=== PATIENT | male | born 2000 | race Two or more races ===

== ENCOUNTER 2018-01-21 14:01 | Outpatient (CLI) | payer MEDICAID ==
[~2018-01-21] VITALS: Ht 170.2 cm; Wt 50.8 kg
[2018-01-21 14:00] VITALS: BP 103/62
--- NOTE | 2018-01-22 15:31 | GI Initial Consult Note ---
History of Present Illness General Date patient seen: Jan 21, 2018 Time patient seen: 15:26 Referring physician: HMO Reason for Consultation: RECURRENT DIARRHEA Present Illness HPI 17 year old male patient presents today with complaint of generalized abdominal pain. He states he has had recurrent diarrhea x4-5 months with occasional bloody stools. Denies any rectal pain. Denies any melena or hematochezia. He initially believed he had celiac's disease, but being on a lactose free diet did not resolve his problem. Denies any recent travels. Denies any unintentional weight loss or changes in dietary habits. No signs of abuse or neglect. Patient is not fall risk. No history of colonoscopy. Med list reviewed/reconciled: Yes Allergies: Coded Allergies: No Known Allergies (Unverified , 01/21/18) Patient History History Provided By: Patient, Medical Record Past Medical History: none Past Surgical History: none Pertinent Family History: none Social History: Denies: smoking, alcohol use, drug use, other Review of Systems All Other Systems: negative except mentioned in HPI Physical Exam Vital Signs Date Time Temp Pulse Resp B/P (MAP) Pulse Ox O2 Delivery O2 Flow Rate FiO2 01/21/18 14:00 98.1 75 103/62 98 Sp02 EP Interpretation: reviewed, normal General Appearance: well appearing, no apparent distress, alert Head: normocephalic EENT: PERRL/EOMI, normal ENT inspection Neck: supple Respiratory: normal breath sounds, no respiratory distress Cardiovascular: normal rate Gastrointestinal: normal inspection, non tender, soft, normal bowel sounds, non -distended Rectal: deferred Genitourinary: deferred Musculoskeletal: normal inspection, back normal Neurologic: normal inspection, alert, oriented x3, responsive Psychiatric: normal inspection, judgement/insight normal, memory normal Skin: normal inspection, normal color, no rash, warm/dry, palpation normal, well hydrated Lymphatic: normal inspection, no adenopathy GI: Plan Problems: (1) Colonoscopy planned (2) Diarrhea (3) Dehydration (4) Malnutrition Plan Colonoscopy to be scheduled pending PA, will contact patient. - CLD & (Nulytely/Suprep/Movi-Prep) prep instructions given and acknowledged by patient. - NPO @ [place] day prior procedure explained. Will follow with additional recs post procedure. Seen with Dr. Gordillo. Thank you for this patient referral. The patient was seen and examined at bedside and all new and available data was reviewed in the patients chart. I agree with the above findings, impression and plan. (Patient seen earlier today. Signature stamp does not reflect patient encounter time.). - MD Daisha [facility]obalHon[facility] Jan 22, 2018 15:31
== END 2018-01-21 14:31 | disposition home or self-care (01) ==
LOC: PAN 14:01
DX: R10.84 Generalized abdominal pain (principal); A08.8 Other specified intestinal infections; E86.0 Dehydration; E46 Unspecified protein-calorie malnutrition
CPT/HCPCS: 99202